=== PATIENT | male | born 1960 ===

== ENCOUNTER 2021-07-16 11:30 | Outpatient (CLI) | payer OTHER ==
[~2021-07-16 11:30] MED LIST: NORVASC5 MG PO; TOPROL XL25 M1 PO; ZESTRIL5 MG PO
== END 2021-07-16 12:32 | disposition home or self-care (01) ==
LOC: SONOGRAMA 11:30
PROVIDERS: ATTEND Otolaryngology
DX: E04.2 Nontoxic multinodular goiter (principal)

== ENCOUNTER 2021-07-19 08:00 | Day surgery (SDC) | payer OTHER ==
[~2021-07-19] VITALS: Ht 196.8 cm; Wt 140.6 kg
== END 2021-07-19 09:00 | disposition home or self-care (01) ==
LOC: CIR.AMB 08:00 → SURH 11:30 → O/R 15:55
PROVIDERS: ATTEND Otolaryngology
DX: D11.0 Benign neoplasm of parotid gland (principal); Z87.891 Personal history of nicotine dependence; E66.9 Obesity, unspecified; Z79.82 Long term (current) use of aspirin